=== PATIENT | female | born 1970 | race Caucasian/White ===

== ENCOUNTER 2017-05-03 09:44 | Outpatient (CLI) | payer OTHER ==
[~2017-05-03 09:44] MED LIST: ALDOMET250 MG; CEFTIN250 MG PO; PERCOCET 5/3251 TAB PO; PROFERRIN-FORTE1 TAB PO
== END 2017-05-03 09:58 | disposition home or self-care (01) ==
LOC: LAB 09:44
DX: E88.9 Metabolic disorder, unspecified (principal); E78.5 Hyperlipidemia, unspecified; D64.9 Anemia, unspecified; E55.9 Vitamin D deficiency, unspecified; E66.9 Obesity, unspecified

== ENCOUNTER 2017-05-14 08:24 | Outpatient (CLI) | payer OTHER | END 2017-05-14 08:30 | disposition home or self-care (01) | LOC: LAB 08:24 | DX: E66.9 Obesity, unspecified (principal); E78.4 Other hyperlipidemia; R52 Pain, unspecified ==

== ENCOUNTER 2017-06-21 08:45 | Outpatient (CLI) | payer OTHER | END 2017-06-21 08:56 | disposition home or self-care (01) | LOC: LAB 08:45 | DX: D64.9 Anemia, unspecified (principal); I10 Essential (primary) hypertension ==

== ENCOUNTER 2017-07-20 11:02 | Outpatient (CLI) | payer OTHER | END 2017-07-20 15:44 | disposition home or self-care (01) | LOC: SONOGRAMA 11:02 | DX: I10 Essential (primary) hypertension (principal) ==

== ENCOUNTER 2018-01-18 07:52 | Outpatient (CLI) | payer OTHER | END 2018-01-18 15:00 | disposition home or self-care (01) | LOC: LAB 07:52 | DX: E11.9 Type 2 diabetes mellitus without complications (principal); I11.9 Hypertensive heart disease without heart failure; E78.2 Mixed hyperlipidemia; E03.8 Other specified hypothyroidism ==

== ENCOUNTER 2018-06-06 09:24 | Outpatient (CLI) | payer OTHER | END 2018-06-06 11:59 | disposition HB | LOC: LAB 09:24 | DX: E78.49 Other hyperlipidemia (principal); D64.89 Other specified anemias; Z11.3 Encounter for screening for infections with a predominantly sexual mode of transmission ==

== ENCOUNTER 2018-08-22 09:45 | Outpatient (CLI) | payer OTHER | END 2018-08-22 10:08 | disposition home or self-care (01) | LOC: LAB 09:45 | DX: E78.49 Other hyperlipidemia (principal); R73.9 Hyperglycemia, unspecified; E71.41 Primary carnitine deficiency; E55.9 Vitamin D deficiency, unspecified ==

== ENCOUNTER 2018-11-21 08:04 | Outpatient (CLI) | payer OTHER | END 2018-11-21 16:50 | disposition home or self-care (01) | LOC: LAB 08:04 | DX: D64.89 Other specified anemias (principal); E03.8 Other specified hypothyroidism; Z12.11 Encounter for screening for malignant neoplasm of colon; N95.1 Menopausal and female climacteric states; I10 Essential (primary) hypertension; C51.9 Malignant neoplasm of vulva, unspecified; E83.51 Hypocalcemia; A64 Unspecified sexually transmitted disease; M26.621 Arthralgia of right temporomandibular joint; N39.0 Urinary tract infection, site not specified; R97.8 Other abnormal tumor markers; R79.89 Other specified abnormal findings of blood chemistry ==

== ENCOUNTER 2018-12-12 07:54 | Outpatient (CLI) | payer OTHER | END 2018-12-12 15:57 | disposition home or self-care (01) | LOC: LAB 07:54 | DX: M79.7 Fibromyalgia (principal); E55.9 Vitamin D deficiency, unspecified; E71.41 Primary carnitine deficiency ==

== ENCOUNTER 2018-12-19 07:48 | Outpatient (CLI) | payer OTHER | END 2018-12-19 11:16 | disposition home or self-care (01) | LOC: LAB 07:48 | DX: E78.49 Other hyperlipidemia (principal); E71.41 Primary carnitine deficiency; E66.8 Other obesity ==

== ENCOUNTER 2019-09-05 08:16 | Outpatient (CLI) | payer OTHER | END 2019-09-05 14:19 | disposition home or self-care (01) | LOC: LAB 08:16 | PROVIDERS: ATTEND Pediatrics | DX: I10 Essential (primary) hypertension (principal); E66.8 Other obesity; E78.89 Other lipoprotein metabolism disorders; R73.09 Other abnormal glucose; Z20.89 Contact with and (suspected) exposure to other communicable diseases; Z20.828 Contact with and (suspected) exposure to other viral communicable diseases ==

== ENCOUNTER 2019-09-16 08:03 | Outpatient (CLI) | payer OTHER | END 2019-09-16 08:11 | disposition home or self-care (01) | LOC: LAB 08:03 | PROVIDERS: ATTEND Pediatrics | DX: E03.8 Other specified hypothyroidism (principal); L98.8 Other specified disorders of the skin and subcutaneous tissue; E66.8 Other obesity ==

== ENCOUNTER 2019-12-30 16:06 | Outpatient (CLI) | payer OTHER | END 2019-12-30 16:07 | disposition home or self-care (01) | LOC: PPH VACUNA 16:06 → LAB 16:06 | DX: Z23 Encounter for immunization (principal) ==

== ENCOUNTER 2020-01-02 14:16 | Outpatient (CLI) | payer OTHER | END 2020-01-02 15:52 | disposition home or self-care (01) | LOC: LAB 14:16 | PROVIDERS: ATTEND Obstetrics & Gynecology | DX: D64.89 Other specified anemias (principal); E03.8 Other specified hypothyroidism; Z12.11 Encounter for screening for malignant neoplasm of colon; N95.1 Menopausal and female climacteric states; I10 Essential (primary) hypertension; C51.9 Malignant neoplasm of vulva, unspecified; A64 Unspecified sexually transmitted disease; N39.0 Urinary tract infection, site not specified; R97.8 Other abnormal tumor markers; R79.89 Other specified abnormal findings of blood chemistry; E55.9 Vitamin D deficiency, unspecified; Z20.828 Contact with and (suspected) exposure to other viral communicable diseases ==

== ENCOUNTER 2020-01-27 07:40 | Outpatient (CLI) | payer OTHER | END 2020-01-27 07:52 | disposition home or self-care (01) | LOC: NUCLEAR 07:40 | PROVIDERS: ATTEND Internal Medicine Cardiovascular Disease | DX: R07.89 Other chest pain (principal); I20.8 Other forms of angina pectoris | CPT/HCPCS: 78452; 93017; A9500 ==

== ENCOUNTER 2020-01-30 08:12 | Outpatient (CLI) | payer OTHER | END 2020-01-30 08:20 | disposition home or self-care (01) | LOC: LAB 08:12 | PROVIDERS: ATTEND Pediatrics | DX: Z20.828 Contact with and (suspected) exposure to other viral communicable diseases (principal); E78.49 Other hyperlipidemia; R94.6 Abnormal results of thyroid function studies; I10 Essential (primary) hypertension ==

== ENCOUNTER → 2020-02-17 07:52 | Outpatient (CLI) | payer OTHER | END | disposition home or self-care (01) | LOC: LAB 07:52 | PROVIDERS: ATTEND Pediatrics | DX: E03.8 Other specified hypothyroidism (principal); D64.89 Other specified anemias ==

== ENCOUNTER 2020-02-20 10:09 | Outpatient (CLI) | payer OTHER | END 2020-02-20 15:00 | disposition home or self-care (01) | LOC: LAB 10:09 | PROVIDERS: ATTEND Pediatrics | DX: D64.89 Other specified anemias (principal); E56.8 Deficiency of other vitamins; N91.0 Primary amenorrhea ==

== ENCOUNTER 2020-02-24 08:15 | Outpatient (CLI) | payer OTHER | END 2020-02-24 14:34 | disposition home or self-care (01) | LOC: LAB 08:15 | PROVIDERS: ATTEND Pediatrics | DX: D50.8 Other iron deficiency anemias (principal); E56.8 Deficiency of other vitamins ==

== ENCOUNTER → 2020-03-03 14:45 | Outpatient (CLI) | payer OTHER | END | disposition home or self-care (01) | LOC: LAB 14:45 | PROVIDERS: ATTEND Internal Medicine Cardiovascular Disease | DX: E72.20 Disorder of urea cycle metabolism, unspecified (principal) ==

== ENCOUNTER 2020-03-16 07:41 | Outpatient (CLI) | payer OTHER | END 2020-03-16 07:45 | disposition home or self-care (01) | LOC: LAB 07:41 | PROVIDERS: ATTEND Internal Medicine Cardiovascular Disease | DX: Z00.00 Encounter for general adult medical examination without abnormal findings (principal) ==

== ENCOUNTER → 2020-03-23 11:23 | Outpatient (CLI) | payer OTHER | END | disposition home or self-care (01) | LOC: LAB 11:23 | PROVIDERS: ATTEND Pediatrics | DX: Z20.828 Contact with and (suspected) exposure to other viral communicable diseases (principal) ==

== ENCOUNTER 2020-07-27 07:48 | Outpatient (CLI) | payer OTHER | END 2020-07-27 07:52 | disposition home or self-care (01) | LOC: LAB 07:48 | PROVIDERS: ATTEND Pediatrics | DX: R73.09 Other abnormal glucose (principal); E55.9 Vitamin D deficiency, unspecified; Z20.822 Contact with and (suspected) exposure to COVID-19 ==

== ENCOUNTER 2020-09-14 09:22 | Outpatient (CLI) | payer OTHER | END 2020-09-14 09:23 | disposition home or self-care (01) | LOC: LAB 09:22 | PROVIDERS: ATTEND Pediatrics | DX: Z11.59 Encounter for screening for other viral diseases (principal); E28.310 Symptomatic premature menopause ==

== ENCOUNTER 2020-11-17 07:48 | Outpatient (CLI) | payer OTHER | END 2020-11-17 11:12 | disposition home or self-care (01) | LOC: LAB 07:48 | PROVIDERS: ATTEND Pediatrics | DX: Z11.52 Encounter for screening for COVID-19 (principal) ==

== ENCOUNTER 2020-12-03 09:59 | Outpatient (CLI) | payer OTHER | END 2020-12-03 10:05 | disposition home or self-care (01) | LOC: LAB 09:59 | PROVIDERS: ATTEND Pediatrics | DX: Z01.84 Encounter for antibody response examination (principal); Z20.818 Contact with and (suspected) exposure to other bacterial communicable diseases ==

== ENCOUNTER 2021-04-22 09:00 | Outpatient (CLI) | payer OTHER | END 2021-04-22 09:15 | disposition home or self-care (01) | LOC: PPH VACUNA 09:00 | PROVIDERS: ATTEND Emergency Medicine Pediatric Emergency Medicine | DX: Z23 Encounter for immunization (principal) ==

== ENCOUNTER 2021-04-22 09:29 | Outpatient (CLI) | payer OTHER | END 2021-04-22 16:07 | disposition home or self-care (01) | LOC: LAB 09:29 | PROVIDERS: ATTEND Pediatrics | DX: Z20.828 Contact with and (suspected) exposure to other viral communicable diseases (principal) ==

== ENCOUNTER → 2021-05-26 08:58 | Outpatient (CLI) | payer OTHER | END | disposition home or self-care (01) | LOC: LAB 08:58 | PROVIDERS: ATTEND Obstetrics & Gynecology | DX: D64.9 Anemia, unspecified (principal); Z12.11 Encounter for screening for malignant neoplasm of colon; E03.8 Other specified hypothyroidism; N95.1 Menopausal and female climacteric states; I10 Essential (primary) hypertension; C51.9 Malignant neoplasm of vulva, unspecified; N30.00 Acute cystitis without hematuria; E83.51 Hypocalcemia; A64 Unspecified sexually transmitted disease; N39.0 Urinary tract infection, site not specified; R97.8 Other abnormal tumor markers; R79.89 Other specified abnormal findings of blood chemistry; E55.9 Vitamin D deficiency, unspecified; A60.9 Anogenital herpesviral infection, unspecified; E11.9 Type 2 diabetes mellitus without complications; E78.1 Pure hyperglyceridemia ==

== ENCOUNTER → 2021-06-21 08:25 | Outpatient (CLI) | payer OTHER | END | disposition home or self-care (01) | LOC: LAB 08:25 | PROVIDERS: ATTEND Pediatrics | DX: E87.6 Hypokalemia (principal) ==

== ENCOUNTER 2021-12-29 09:41 | Outpatient (CLI) | payer OTHER | END 2021-12-29 10:07 | disposition home or self-care (01) | LOC: RAD 09:41 | PROVIDERS: ATTEND Physical Medicine & Rehabilitation | DX: M19.90 Unspecified osteoarthritis, unspecified site (principal); M54.50 Low back pain, unspecified ==

== ENCOUNTER 2022-05-24 14:31 | Outpatient (CLI) | payer OTHER | END 2022-05-24 14:32 | disposition home or self-care (01) | LOC: LAB 14:31 | PROVIDERS: ATTEND Pediatrics | DX: D64.89 Other specified anemias (principal) ==

== ENCOUNTER 2022-11-23 07:19 | Outpatient (CLI) | payer OTHER | END 2022-11-23 08:08 | disposition home or self-care (01) | LOC: LAB 07:19 | PROVIDERS: ATTEND Pediatrics | DX: D64.9 Anemia, unspecified (principal); E55.9 Vitamin D deficiency, unspecified; E78.5 Hyperlipidemia, unspecified; R73.9 Hyperglycemia, unspecified; E66.9 Obesity, unspecified; M54.59 Other low back pain; R80.8 Other proteinuria; R10.9 Unspecified abdominal pain; D50.8 Other iron deficiency anemias ==

== ENCOUNTER 2022-11-30 07:14 | Outpatient (CLI) | payer OTHER | END 2022-11-30 07:20 | disposition home or self-care (01) | LOC: LAB 07:14 | PROVIDERS: ATTEND Pediatrics | DX: N91.2 Amenorrhea, unspecified (principal); R23.2 Flushing ==

== ENCOUNTER 2023-03-06 07:30 | Outpatient (CLI) | payer OTHER ==
[2023-03-06 08:36] LABS: URINE APPEARANCE Cloudy; URINE BILIRRUBIN Negative (NEGATIVE); URINE BLOOD NHT; URINE COLOR Dark Yellow; URINE GLUCOSE Negative (NEGATIVE); URINE LEUKOCYTE Moderate; URINE NITRATE Negative; URINE PROTEIN 30 (NEGATIVE)
[2023-03-06 08:40] LABS: URINE EPITHELIAL CELLS 85.9 uL (0.0-38.8); URINE RBC 59.3 uL (0.0-20.8); URINE WBC 348.7 uL (0.0-23.2)
[2023-03-06 08:52] LABS: HEMATOCRIT 36.9 % (36.0-45.00); HEMOGLOBIN 11.9 g/dL (12.0-15.00); MEAN CELL VOLUME 75.3 fL (80.00-100.00); MEAN CORPUSCULAR HEMOGLOBIN 24.3 pg (27.00-32.0); MEAN CORPUSCULAR HGB CONC 32.3 g/dl (32.0-36.0); PLATELET COUNT 313 K/uL (150-450); RED CELL DISTRIBUTION WIDTH 16.1 % (11.5-14.5)
[2023-03-06 09:05] LABS: URINE BACTERIA > 9821.5 uL (0.0-1933)
[2023-03-06 09:37] LABS: ALBUMIN 3.6 gm/dL (3.4-5.0); BILIRUBIN TOTAL 0.46 mg/dL (0.3-1.2); CALCIUM 9.3 mg/dL (8.5-10.1); CREATININE SERUM 0.88 mg/dL (0.55-1.02); FREE TRIODOTIRONINE 2.96 pg/ml (2.18-3.98); GFR 67.74; GLOBULINA 3.8 G/DL (2.4-3.5); POTASSIUM 3.37 mEq/L (3.5-5.1); TOTAL PROTEIN 7.4 gm/dL (6.4-8.2); TSH 3.04 uIU/mL (0.358-3.74)
[2023-03-06 09:39] LABS: URIC ACID 6.4 mg/dL (2.5-7.5)
[2023-03-06 09:43] LABS: C-REACTIVE PROTEIN 0.78 MG/DL (0.00-0.29); CHOL HDL RATIO 5.7 (0-5.0)
[2023-03-06 11:05] LABS: CORTISOL 12.57 ug/dl; FOLIC ACID 14.02 ng/ml (4.78-20); VITAMIN D3 25 HYDROXY 44.44 ng/ml (30-120)
[2023-03-07 08:10] LABS: DHEA-SULFATE 83.3 ug/dL (41.2-243.7)
[2023-03-07 10:08] LABS: ANTI THYROID PEROXIDASE < 9 IU/mL (0-34)
[2023-03-07 12:08] LABS: anti thy < 1.0 IU/mL (0.0-0.9); tpo < 9 IU/mL (0-34)
== END 2023-03-06 07:57 | disposition home or self-care (01) ==
LOC: LAB 07:30
DX: Z13.1 Encounter for screening for diabetes mellitus (principal); E78.2 Mixed hyperlipidemia; E55.9 Vitamin D deficiency, unspecified; E03.9 Hypothyroidism, unspecified; E88.818 Other insulin resistance

== ENCOUNTER 2023-03-07 07:53 | Outpatient (CLI) | payer OTHER | END 2023-03-07 14:45 | disposition home or self-care (01) | LOC: SONOGRAMA 07:53 | PROVIDERS: ATTEND General Practice | DX: R10.9 Unspecified abdominal pain (principal) ==

== ENCOUNTER 2023-07-20 10:04 | Outpatient (CLI) | payer OTHER ==
[2023-07-20 11:34] LABS: HEMATOCRIT 36.7 % (36.0-45.00); HEMOGLOBIN 11.6 g/dL (12.0-15.00); MEAN CELL VOLUME 75.3 fL (80.00-100.00); MEAN CORPUSCULAR HEMOGLOBIN 23.8 pg (27.00-32.0); MEAN CORPUSCULAR HGB CONC 31.6 g/dl (32.0-36.0); PLATELET COUNT 293 K/uL (150-450); RED BLOOD COUNT 4.87 M/uL (4.00-6.00); RED CELL DISTRIBUTION WIDTH 16.6 % (11.5-14.5)
[2023-07-20 12:10] LABS: ALBUMIN 3.6 gm/dL (3.4-5.0); BILIRUBIN TOTAL 0.46 mg/dL (0.3-1.2); CALCIUM 9.4 mg/dL (8.5-10.1); CHOL HDL RATIO 3.8 (0-5.0); CREATININE SERUM 0.77 mg/dL (0.55-1.02); GFR 78.72; GLOBULINA 3.1 G/DL (2.4-3.5); POTASSIUM 3.97 mEq/L (3.5-5.1); T4 FREE 1.01 NG/ML (0.76-1.46); TOTAL PROTEIN 6.7 gm/dL (6.4-8.2); TSH 2.09 uIU/mL (0.358-3.74)
[2023-07-20 13:05] LABS: FOLIC ACID 18.44 ng/ml (4.78-20)
== END 2023-07-20 10:05 | disposition home or self-care (01) ==
LOC: LAB 10:04
DX: E11.9 Type 2 diabetes mellitus without complications (principal); E78.9 Disorder of lipoprotein metabolism, unspecified; E21.1 Secondary hyperparathyroidism, not elsewhere classified; E55.9 Vitamin D deficiency, unspecified; I10 Essential (primary) hypertension

== ENCOUNTER 2023-07-23 08:01 | Outpatient (CLI) | payer OTHER | END 2023-07-23 14:30 | disposition home or self-care (01) | LOC: LAB 08:01 | PROVIDERS: ATTEND Pediatrics | DX: R80.9 Proteinuria, unspecified (principal); R73.9 Hyperglycemia, unspecified ==

== ENCOUNTER 2023-12-05 08:35 | Outpatient (CLI) | payer OTHER ==
[2023-12-05 10:34] LABS: PH,URINE 6.5 (5.0-8.0); URINE APPEARANCE Clear; URINE BILIRRUBIN Negative (NEGATIVE); URINE BLOOD Negative; URINE COLOR Yellow; URINE GLUCOSE Negative (NEGATIVE); URINE KETONE Trace (NEGATIVE); URINE LEUKOCYTE Negative; URINE NITRATE Negative; URINE PROTEIN Trace (NEGATIVE); URINE UROBILINOGEN 0.2 E.U./dl
[2023-12-05 10:40] LABS: URINE BACTERIA 230.5 uL (0.0-1933); URINE EPITHELIAL CELLS 8.4 uL (0.0-38.8); URINE RBC 24.1 uL (0.0-20.8)
[2023-12-05 10:48] LABS: URINE CAST 0.61 uL (0.0-1.40)
[2023-12-05 10:59] LABS: HEMATOCRIT 36.8 % (36.0-45.00); HEMOGLOBIN 11.8 g/dL (12.0-15.00); MEAN CELL VOLUME 75.6 fL (80.00-100.00); MEAN CORPUSCULAR HEMOGLOBIN 24.3 pg (27.00-32.0); MEAN CORPUSCULAR HGB CONC 32.1 g/dl (32.0-36.0); PLATELET COUNT 309 K/uL (150-450); RED BLOOD COUNT 4.86 M/uL (4.00-6.00)
[2023-12-05 11:37] LABS: ALBUMIN 3.8 gm/dL (3.4-5.0); BILIRUBIN TOTAL 0.47 mg/dL (0.3-1.2); CALCIUM 9.5 mg/dL (8.5-10.1); CHOL HDL RATIO 3.6 (0-5.0); CREATININE SERUM 0.74 mg/dL (0.55-1.02); GFR 82.41; GLOBULINA 3.2 G/DL (2.4-3.5); POTASSIUM 3.77 mEq/L (3.5-5.1); T4 FREE 1.13 NG/ML (0.76-1.46); TSH 1.58 uIU/mL (0.358-3.74)
[2023-12-05 11:38] LABS: C-REACTIVE PROTEIN 0.67 MG/DL (0.00-0.29)
[2023-12-05 12:24] LABS: VITAMIN D3 25 HYDROXY 44.87 ng/ml (30-120)
[2023-12-07 09:11] LABS: ESTRADIOL SERUM 9.5 pg/mL (.); FOLLICLE STIMULATING HORMONE 51.6 mIU/mL (.); PROGESTERONA < 0.1 ng/mL (.)
== END 2023-12-05 08:40 | disposition home or self-care (01) ==
LOC: LAB 08:35
PROVIDERS: ATTEND Pediatrics
DX: E03.8 Other specified hypothyroidism (principal); C51.9 Malignant neoplasm of vulva, unspecified; E83.51 Hypocalcemia; D64.9 Anemia, unspecified; R94.6 Abnormal results of thyroid function studies; R73.9 Hyperglycemia, unspecified; N39.0 Urinary tract infection, site not specified; E55.9 Vitamin D deficiency, unspecified; I10 Essential (primary) hypertension; Z12.11 Encounter for screening for malignant neoplasm of colon; N95.1 Menopausal and female climacteric states; N30.00 Acute cystitis without hematuria; A64 Unspecified sexually transmitted disease

== ENCOUNTER 2023-12-13 13:01 | Outpatient (CLI) | payer OTHER | END 2023-12-13 13:04 | disposition home or self-care (01) | LOC: NUCLEAR 13:01 | PROVIDERS: ATTEND Obstetrics & Gynecology | DX: M81.0 Age-related osteoporosis without current pathological fracture (principal) ==

== ENCOUNTER 2024-07-03 08:16 | Outpatient (CLI) | payer OTHER ==
[2024-07-03 09:39] LABS: HEMATOCRIT 38.1 % (36.0-45.00); HEMOGLOBIN 12.2 g/dL (12.0-15.00); MEAN CELL VOLUME 74.7 fL (80.00-100.00); MEAN CORPUSCULAR HEMOGLOBIN 23.9 pg (27.00-32.0); PLATELET COUNT 281 K/uL (150-450); RED CELL DISTRIBUTION WIDTH 15.7 % (11.5-14.5)
[2024-07-03 09:51] LABS: URINE APPEARANCE Clear; URINE BACTERIA 1151.7 uL (0.0-1933); URINE BILIRRUBIN Negative (NEGATIVE); URINE BLOOD Trace; URINE COLOR Dark Yellow; URINE EPITHELIAL CELLS 15.8 uL (0.0-38.8); URINE GLUCOSE Negative (NEGATIVE); URINE KETONE Trace (NEGATIVE); URINE LEUKOCYTE Negative; URINE NITRATE Negative; URINE PROTEIN Trace (NEGATIVE); URINE UROBILINOGEN 0.2 E.U./dl; URINE WBC 15.6 uL (0.0-23.2)
[2024-07-03 09:52] LABS: URINE CAST 1.03 uL (0.0-1.40)
[2024-07-03 10:03] LABS: ALBUMIN 3.7 gm/dL (3.4-5.0); BILIRUBIN TOTAL 0.37 mg/dL (0.3-1.2); CALCIUM 9.3 mg/dL (8.5-10.1); CHOL HDL RATIO 3.2 (0-5.0); CREATININE SERUM 0.88 mg/dL (0.55-1.02); FREE TRIODOTIRONINE 2.58 pg/ml (2.18-3.98); GFR 67.22; GLOBULINA 3.3 G/DL (2.4-3.5); POTASSIUM 3.44 mEq/L (3.5-5.1); T4 FREE 1.06 NG/ML (0.76-1.46); TSH 2.21 uIU/mL (0.358-3.74)
[2024-07-04 09:10] LABS: ESTRADIOL SERUM 26.3 pg/mL (.); FOLLICLE STIMULATING HORMONE 39.7 mIU/mL (.); INSULIN LEVELS 18.7 uIU/mL (2.6-24.9); PROGESTERONA < 0.1 ng/mL (.)
== END 2024-07-03 08:21 | disposition home or self-care (01) ==
LOC: LAB 08:16
PROVIDERS: ATTEND Obstetrics & Gynecology
DX: E66.9 Obesity, unspecified (principal); R94.6 Abnormal results of thyroid function studies; E78.5 Hyperlipidemia, unspecified; R73.9 Hyperglycemia, unspecified; E55.9 Vitamin D deficiency, unspecified; I10 Essential (primary) hypertension; Z12.11 Encounter for screening for malignant neoplasm of colon; D64.9 Anemia, unspecified; E03.8 Other specified hypothyroidism; N95.1 Menopausal and female climacteric states; C51.9 Malignant neoplasm of vulva, unspecified; N30.00 Acute cystitis without hematuria; E83.51 Hypocalcemia; A64 Unspecified sexually transmitted disease; N39.0 Urinary tract infection, site not specified; R97.8 Other abnormal tumor markers; R79.89 Other specified abnormal findings of blood chemistry; A60.9 Anogenital herpesviral infection, unspecified